=== PATIENT | female | born 1985 ===

== ENCOUNTER 2017-01-04 16:52 | Emergency (ER) | payer OTHER ==
[2017-01-04] MEDS ORDERED: Acetaminophen TAB* 325 MG PO ONE (17:46)
[2017-01-04] MEDS ORDERED: HYDROcodone/ACETAMIN 5-325 MG* 1 TAB PO ONE (17:55)
--- NOTE | 2017-01-04 19:02 | RAD ---
INDICATION: Crush injury to right forearm 3 days earlier TECHNIQUE: 2 views of the right forearm were obtained. FINDINGS: The bones are normal alignment. Joint spaces appear maintained. No fracture is seen. IMPRESSION: No radiographic evidence of acute fracture or dislocation. If the patient's symptoms persist, follow-up imaging is recommended.
--- NOTE | 2017-01-06 11:19 | UC ---
Galilea Ackerman Thomas, scribed for Shelli Willard MD on 01/04/17 at 1751 . Upper Extremity HPI - HPI Summary HPI Summary: The pt is a 31 y/o F presenting to [facility] c/o R forearm pain s/p an injury three days ago in which a dresser fell on her and pinned her arm agaomst the wall of the [employer]. The pain is rated 6/10. The pain is aggravated by palpation of her wrist. 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 This has not alleviated pain. She also reports an electrical shock sensation to her right forearm. Pt denies neck pain, shoulder pain, wrist pain, finger pain, or any other complaints. She is accompanied by a friend. Patients medication reviewed this visit. - History of Current Complaint Chief Complaint: UCUpperExtremity Stated Complaint: LEFT ARM INJURT Time Seen by Provider: 01/04/17 17:40 Hx Obtained From: Patient, Family/Director Of Workforce Development - friend is in the room Hx Last Menstrual Period: 12/16/16 Onset/Duration: Sudden Onset, Lasting Days - injury was three days ago, Still Present Pain Intensity: 6 Pain Scale Used: 0-10 Numeric Location Of Pain: Is Discrete @ - R forearm Aggravating Factor(s): Movement - Palpation of her right wrist Alleviating Factor(s): Nothing - Ibuprofen and ice did not allevaite pain Associated Signs And Symptoms: Positive: Other - No neck pain, shoudler pain, wrist pain, finger pain, or any other complaints Related History: Other: - A dresser fell on her and pinned her arm - Allergies/Home Medications Allergies/Adverse Reactions: Allergies Allergy/AdvReac Type Severity Reaction Status Date / Time [place] Meal Allergy Airway Verified 01/04/17 16:57 Obstruction walnuts Allergy Airway Uncoded 01/04/17 16:57 Obstruction Home Medications: Home Medications Amphetamine-Dextroamphetamine [Adderall XR 30 mg-] 1 cap PO DAILY 01/04/17 [ History Confirmed 01/04/17] Gabapentin CAP(*) [Neurontin 300 CAP(*)] 300 mg PO DAILY 01/04/17 [History Confirmed 01/04/17] PMH/Surg Hx/FS Hx/Imm Hx Previously Healthy: No Endocrine History: Other Other Endocrine History: NEG: DM Cardiovascular History: Other Other Cardiovascular History: NEG: HTN Psychological History: Depression - uses gabapentin, Other - ADHD Other Psychological History: ADHD - Surgical History Surgical History: Yes Surgery Procedure, Year, and Place: Gallbladder, 3 c-sections, breast reduction - Family History Known Family History: Positive: Unknown - The patient is adopted, so FHx, is unknown - Social History Occupation: Unemployed Alcohol Use: None Substance Use Type: None Smoking Status (MU): Light Every Day Tobacco Smoker Review of Systems Musculoskeletal: Other: - Right forearm pain; NEGATIVE: neck pain, shoulder pain , wrist pain, finger pain Neurological: Other - Electrical shock sensation to her right forearm All Other Systems Reviewed And Are Negative: Yes Physical Exam Triage Information Reviewed: Yes Appearance: Well-Appearing, Pain Distress - mild to moderate. Vital Signs: Initial Vital Signs Temp 98.6 F 01/04/17 16:52 Pulse 79 01/04/17 16:52 Resp 12 01/04/17 16:52 BP 104/65 01/04/17 16:52 Pulse Ox 97 01/04/17 16:52 Neck: Positive: Supple, Nontender Respiratory: Positive: Lungs clear, Normal breath sounds Cardiovascular: Positive: RRR, No Murmur Musculoskeletal: Positive: Strength Limited @ - right wrist, pain with movement in forearm. No pain with passive movement of digits. Can make a fist. Diffuse swelling and ecchymosis medial forearm, tender to palpation. Moderate swelling. Neurological: Positive: Alert, Muscle Tone Normal Skin Exam: Other - ecchymosis right forearm Diagnostics - Radiology Forearm XR Xray Interpretation: No Acute Changes - No radiographic evidence of acute fracture or dislocation. [facility] Physician has read this report and agrees. Radiology Interpretation Completed By: Radiologist Upper Extremity Course/Dx - Differential Dx/Diagnosis Provider Diagnoses: contusion right forearm Discharge - Discharge Plan Condition: Stable Disposition: HOME Prescriptions: Hydrocodone-Acetaminophen [[place] 5-325 mg] 1 tab PO Q6H PRN #15 tab MDD 4 PRN Reason: Pain Patient Education Materials: Crush Injury (ED) Referrals: No Primary Care Phys,NOPCP [Primary Care Provider] - Additional Instructions: Wear the sling for comfort and ice your arm every 3 to 4 hours to relieve pain and swelling. Use hydrocodone as needed for pain control over the next several days. If you have ncreasing pain, you should be re-evaluated. follow up with your primary care doctor next week. The documentation as recorded by the Galilea hernandez Thomas accurately reflects the service I personally performed and the decisions made by me, Shelli Willard MD.
== END 2017-01-04 19:13 | disposition home or self-care (01) ==
LOC: UCEAST 16:52
DX: S50.11XA Contusion of right forearm, initial encounter (principal); Y92.9 Unspecified place or not applicable; W22.8XXA Striking against or struck by other objects, initial encounter; F17.210 Nicotine dependence, cigarettes, uncomplicated
CPT/HCPCS: 99203; A9270-GY; G0463

== ENCOUNTER 2017-05-06 15:04 | Emergency (ER) | payer OTHER | END 2017-05-06 15:21 | disposition left against medical advice (07) | LOC: UCCORT 15:04 | DX: R10.9 Unspecified abdominal pain (principal); M54.5 Low back pain; Z53.21 Procedure and treatment not carried out due to patient leaving prior to being seen by health care provider ==